=== PATIENT | male | born 1945 | race Caucasian/White ===

== ENCOUNTER → 2023-07-07 | Outpatient (CLI) | payer MEDICARE ==
--- NOTE | 2023-07-07 20:14 | US ---
EXAMINATION TYPE: US arterial LE single level DATE OF EXAM: 07/07/2023 11:03 AM CLINICAL INDICATION: Male, 77 years old with history of I73.9 PAD Doppler Waveforms: Right: Triphasic Left: Triphasic Right Brachial Pressure: 139 Left Brachial Pressure: 133 Ankle-Brachial Indices: Right: 1.35 Left: 1.19 (Vessel hardening > 1.4; Normal 0.9 - 1.4, Moderate 0.7 - 0.9, Severe 0.5-0.7) Toe Brachial Indices: Right: 0.8 Left: 0.86 IMPRESSION: No evidence of significant peripheral vascular disease based on ankle-brachial indices a nd Doppler waveform analysis.
== END | disposition home or self-care (01) ==
LOC: RADUSWWP 09:33
PROVIDERS: ATTEND Internal Medicine Geriatric Medicine
DX: I73.9 Peripheral vascular disease, unspecified (principal)
CPT/HCPCS: 93922